=== PATIENT | female | born 1950 | race Caucasian/White ===

== ENCOUNTER 2016-08-14 07:58 | Day surgery (SDC) | payer BC ==
[2016-08-14] MEDS ORDERED: PROPOFOL 10 MG/ML VIAL IV ONE (14:00)
[2016-08-14] MEDS ORDERED: MIDAZOLAM HCL 2MG/2ML VIAL IV ONE (14:00)
[2016-08-14] MEDS ORDERED: LIDOCAINE 2% MDV (20MG/ML) 20ML VIAL IV ONE (14:00)
--- NOTE | 2016-08-19 18:29 | Operative Note ---
DATE OF SURGERY: 08/14/2016 OPERATION: COLONOSCOPY with hot snare polypectomy and cold snare polypectomy x3. PREOPERATIVE DIAGNOSIS: Personal history of polyps. POSTOPERATIVE DIAGNOSES: 1. Ascending colon polyp. 2. Sigmoid colon polyp x3. 3. Colonic diverticulosis. PREPARATION QUALITY: Fair to good. ESTIMATED BLOOD LOSS: Minimal. SPECIMENS: Ascending colon and sigmoid colon x3. COMPLICATIONS: None apparent. PROCEDURE: After informed consent was obtained from the patient, she was placed in the left lateral decubitus position in the endoscopy suite, sedated and monitored by the department of anesthesia. Digital rectal examination was unremarkable. A well-lubricated [id number] colonoscope was inserted into the rectum and advanced to the cecum. Preparation quality was fair to good. The cecum was noted by the ileocecal valve and appendiceal orifice. There were diverticula throughout the length of the colon. The colon was tortuous and quite redundant. In the ascending colon, there was an 8-9 mm sessile polyp removed with a polypectomy snare and ERBE Endocut current. There was no bleeding at the site. The polyp was retrieved. Remainder of the ascending colon, transverse colon, and descending colon were unremarkable other than scattered diverticula. The sigmoid colon revealed 3 diminutive polyps all removed with a cold snare. The remainder of the sigmoid colon and rectum were otherwise unremarkable. Forward and J-turn views of the rectum and anorectum were unremarkable. The endoscope was straightened, the rectal ampulla deflated, and the endoscope was removed. RECOMMENDATIONS: I would suggest the patient follow a soft, low-fiber diet for the next week and a high-fiber diet thereafter. She will require repeat exam in 3-5 years pending tissue histology. As always, thank you for allowing me to participate in the healthcare of your patients. CC: Dr. Jeanette CHI
== END 2016-08-14 10:09 | disposition home or self-care (01) ==
LOC: HOP 07:58
PROVIDERS: ATTEND Internal Medicine Gastroenterology
DX: Z86.010 Personal history of colon polyps (principal); D12.2 Benign neoplasm of ascending colon; K63.5 Polyp of colon; J44.9 Chronic obstructive pulmonary disease, unspecified; E78.00 Pure hypercholesterolemia, unspecified; I10 Essential (primary) hypertension

== ENCOUNTER 2019-01-27 08:02 | Day surgery (SDC) | payer BC ==
[2019-01-27] MEDS ORDERED: LIDOCAINE 2% MDV (20MG/ML) 20ML VIAL IV ONE (08:03)
[2019-01-27] MEDS ORDERED: PROPOFOL 10 MG/ML VIAL IV ONE (08:03)
--- NOTE | 2019-01-27 15:10 | Operative Note ---
OPERATION: Attempted COLONOSCOPY/incomplete COLONOSCOPY to proximal transverse colon. PREOPERATIVE DIAGNOSIS: Personal history of colon polyps. POSTOPERATIVE DIAGNOSES: 1. Colonic diverticulosis. 2. Fair quality colonic preparation. 3. Angulated fixed redundant sigmoid colon. PROCEDURE: After informed consent was obtained from the patient, she was placed in the left lateral decubitus position in the endoscopy suite, sedated and monitored by the department of anesthesia. Digital rectal examination was unremarkable. A well-lubricated [id number] colonoscope was inserted into the rectum and advanced to the sigmoid colon. There was a sharp angulation that did not allow passage of the colonoscope despite multiple attempts at reducing any looping that may have been developing. Multiple attempts were unsuccessful. As a result, I removed the pediatric colonoscope and placed a [id number] adult gastroscope in the rectum and advanced through the area of concern. I was able to advance to the proximal transverse colon. Despite significant looping, I was able to reduce the looping to a degree; however, despite abdominal pressure, torsion of the scope, and any attempts at reducing any looping, I was unable to advance the endoscope to the ascending colon despite multiple attempts. The patient did have some coughing but her oxygen saturation was maintained greater than 90% throughout the procedure. At this point, it was felt that further attempts would not be beneficial. As a result, the colonoscope was retracted through a fairly prepared colon with no additional abnormalities noted. RECOMMENDATIONS: I would suggest the patient undergo either an air contrast barium enema or CTE for completeness. Given her overall comorbidities and colonic anatomy, I would not recommend repeat colonoscopy at this time. Perhaps this may be the last exam necessary. As always, thank you for allowing me to participate in the healthcare of your patients. ALON
== END 2019-01-27 10:25 | disposition home or self-care (01) ==
LOC: HOP 08:02
PROVIDERS: ATTEND Internal Medicine Gastroenterology
DX: Z09 Encounter for follow-up examination after completed treatment for conditions other than malignant neoplasm (principal); Z86.010 Personal history of colon polyps; K57.30 Diverticulosis of large intestine without perforation or abscess without bleeding; Q43.8 Other specified congenital malformations of intestine; Z91.19 Patient's noncompliance with other medical treatment and regimen; I10 Essential (primary) hypertension; E78.00 Pure hypercholesterolemia, unspecified; J44.9 Chronic obstructive pulmonary disease, unspecified